=== PATIENT | male | born 1990 | race Caucasian/White ===

== ENCOUNTER 2021-01-16 04:05 | Emergency (ER) | payer OTHER ==
[2021-01-16 04:51] LABS: BUN/CREATININE RATIO 28 (0-10)
[2021-01-16 05:01] LABS: HEMOGLOBIN 12.9 gm/dl (14.0-17.5); RED BLOOD COUNT 4.49 M/UL (4.20-5.50); WHITE BLOOD COUNT 19.3 K/UL (4.5-11.0)
== END 2021-01-16 11:48 | disposition other institution (70) ==
LOC: ER1 04:05 → CDU 07:26 → ER1 07:26 → CDU 07:26
PROVIDERS: Emergency Medicine
DX: S51.821A Laceration with foreign body of right forearm, initial encounter (principal); S01.111A Laceration without foreign body of right eyelid and periocular area, initial encounter; S90.32XA Contusion of left foot, initial encounter; T79.7XXA Traumatic subcutaneous emphysema, initial encounter; Z20.822 Contact with and (suspected) exposure to COVID-19; F17.200 Nicotine dependence, unspecified, uncomplicated; Z88.1 Allergy status to other antibiotic agents; Z23 Encounter for immunization; V49.40XA Driver injured in collision with unspecified motor vehicles in traffic accident, initial encounter; Y92.410 Unspecified street and highway as the place of occurrence of the external cause
CPT/HCPCS: 12034; 36415; 70450; 70486; 71045; 71260; 72125; 72128; 72131; 73090; 73610; 80053; 85025; 85610; 85730; 86850; 86900; 86901; 90471; 90715; 96374; 99284; G0480; J2270; Q9967; U0002